=== PATIENT | female | born 1950 | race Caucasian/White ===

== ENCOUNTER → 2016-07-28 | Outpatient (CLI) | payer BC ==
[2016-07-28 09:34] LABS: ABSOLUTE EOSINOPHILS # (AUTO) 0.2 10^3/uL (0.0-0.6); ABSOLUTE LYMPHOCYTES (AUTO) 2.6 10^3/uL (0.5-4.7); ABSOLUTE MONOCYTES (AUTO) 0.4 10^3/uL (0.1-1.4); ABSOLUTE NEUT (AUTO) 3.5 10^3/uL (1.7-8.2); BASOPHILS % (AUTO) 0.5 % (0-2); EOSINOPHILS % (AUTO) 3.1 % (0-6); HEMATOCRIT 42.1 % (36.0-47.0); HEMOGLOBIN 13.7 g/dL (12.0-15.5); MEAN CORPUSCULAR HEMOGLOBIN 31.5 pg (27.0-33.4); MEAN CORPUSCULAR HGB CONC 32.4 g/dL (32.0-36.0); MEAN CORPUSCULAR VOLUME 97 fl (80-97); MONOCYTES % (AUTO) 5.4 % (3-13); RED BLOOD COUNT 4.33 10^6/uL (3.72-5.28); RED CELL DISTRIBUTION WIDTH 13.3 % (11.5-14.0); WHITE BLOOD COUNT 6.8 10^3/uL (4.0-10.5)
[2016-07-28 09:47] LABS: ALANINE AMINOTRANSFERASE 27 U/L (9-52); ALBUMIN 3.5 g/dL (3.5-5.0); ALKALINE PHOSPHATASE 77 U/L (38-126); ANION GAP 9 (5-19); ASPARTATE AMINO TRANSFERASE 30 U/L (14-36); BILIRUBIN,TOTAL 0.6 mg/dL (0.2-1.3); BLOOD UREA NITROGEN 15 mg/dL (7-20); CALCIUM 9.1 mg/dL (8.4-10.2); CARBON DIOXIDE 30 mmol/L (22-30); CHLORIDE 104 mmol/L (98-107); CREATININE RESULT 0.75 mg/dL (0.52-1.25); Direct HDL 72 mg/dL (>40); GLUCOSE 75 mg/dL (75-110); POTASSIUM 4.8 mmol/L (3.6-5.0); SODIUM 142.9 mmol/L (137-145); TOTAL PROTEIN 6.4 g/dL (6.3-8.2); TRIGLYCERIDES 59 mg/dL (<150)
[2016-07-28 09:58] LABS: DIRECT LDL 155 mg/dL (<100)
== END ==
LOC: OD 07:55
PROVIDERS: ATTEND Internal Medicine
DX: I10 Essential (primary) hypertension (principal); E78.5 Hyperlipidemia, unspecified; R53.82 Chronic fatigue, unspecified
CPT/HCPCS: 36415; 80053; 80061; 84443; 85025

== ENCOUNTER → 2016-10-14 | Outpatient (CLI) | payer BC ==
[2016-10-14 16:05] LABS: ALANINE AMINOTRANSFERASE 38 U/L (9-52); ALBUMIN 4.3 g/dL (3.5-5.0); ALKALINE PHOSPHATASE 87 U/L (38-126); ASPARTATE AMINO TRANSFERASE 35 U/L (14-36); BILIRUBIN,DIRECT 0.1 mg/dL (0.0-0.4); BILIRUBIN,TOTAL 0.9 mg/dL (0.2-1.3); TOTAL PROTEIN 6.7 g/dL (6.3-8.2)
== END ==
LOC: OD 14:19
PROVIDERS: ATTEND Internal Medicine
DX: Z79.899 Other long term (current) drug therapy (principal)
CPT/HCPCS: 36415; 80076

== ENCOUNTER → 2017-01-01 | Outpatient (CLI) | payer BC ==
--- NOTE | 2017-01-01 15:32 | WOMENS IMAGING REPORT ---
EXAM DESCRIPTION: BONE DENSITY HIP/SPINE COMPLETED DATE/TIME: 01/01/2017 2:33 pm REASON FOR STUDY: M85.80 M85.80 OTH DISRD OF BONE DENSITY AND STRUCTURE, UNSPECIFIED COMPARISON: 2005 TECHNIQUE: Dual-Energy X-ray Absorptiometry (DEXA) of the AP Spine and Hip. LIMITATIONS: None. FINDINGS: LUMBAR SPINE: The bone mineral density (BMD) measured from L1-L4 in the AP projection correlates with a T-score of 0.0, which is normal as defined by the World Health Organization. This is stable compared to previou s exams HIP: The bone mineral density (BMD) measured in the left femoral neck at the hip correlates with a T-score of -1.4, which is osteopenic as defined by the World Health Organization. This is stable compared t o previous exams IMPRESSION: 1. LUMBAR SPINE: Normal 2. HIP: Osteopenic COMMENT: The World Health Organization defines low BMD as follows: T-score: Normal: Greater than -1.0 Osteopenia: Between -1.0 and -2.5 Osteoporosis: Less than -2.5 without fractures Established osteoporosis: Less than -2.5 with fractures In general, you may wish to consider: Diagnosis Treatment Follow-up DEXA Normal BMD Prevention 2-3 years Osteopenia Prevention/Therapy 1-2 years Osteoporosis Therapy Yearly TECHNICAL DOCUMENTATION: JOB ID: [id number]- All Rights Reserved
== END ==
LOC: WI 13:22
PROVIDERS: ATTEND Obstetrics & Gynecology Gynecology
DX: M85.80 Other specified disorders of bone density and structure, unspecified site (principal)
CPT/HCPCS: 77080

== ENCOUNTER → 2017-02-17 | Outpatient (CLI) | payer BC ==
[2017-02-17 08:22] LABS: ALANINE AMINOTRANSFERASE 30 U/L (9-52); ALBUMIN 3.8 g/dL (3.5-5.0); ALKALINE PHOSPHATASE 121 U/L (38-126); ASPARTATE AMINO TRANSFERASE 37 U/L (14-36); BILIRUBIN,DIRECT 0.3 mg/dL (0.0-0.4); BILIRUBIN,TOTAL 0.7 mg/dL (0.2-1.3); CHOLESTEROL 176.18 mg/dL (0-200); Direct HDL 80 mg/dL (>40); TOTAL PROTEIN 6.8 g/dL (6.3-8.2); TRIGLYCERIDES 52 mg/dL (<150)
[2017-02-17 08:33] LABS: DIRECT LDL 88 mg/dL (<100)
== END ==
LOC: OD 07:05
PROVIDERS: ATTEND Internal Medicine
DX: E78.5 Hyperlipidemia, unspecified (principal); Z79.899 Other long term (current) drug therapy
CPT/HCPCS: 36415; 80061; 80076

== ENCOUNTER → 2018-12-15 | Outpatient (CLI) | payer MEDICARE ==
[2018-12-15 08:25] LABS: ABSOLUTE EOSINOPHILS # (AUTO) 0.3 10^3/uL (0.0-0.6); ABSOLUTE LYMPHOCYTES (AUTO) 2.4 10^3/uL (0.5-4.7); ABSOLUTE MONOCYTES (AUTO) 0.4 10^3/uL (0.1-1.4); ABSOLUTE NEUT (AUTO) 3.5 10^3/uL (1.7-8.2); BASOPHILS % (AUTO) 0.4 % (0-2); HEMATOCRIT 43.8 % (36.0-47.0); HEMOGLOBIN 14.8 g/dL (12.0-15.5); LYMPHOCYTES % (AUTO) 36.3 % (13-45); MEAN CORPUSCULAR HEMOGLOBIN 31.8 pg (27.0-33.4); MEAN CORPUSCULAR HGB CONC 33.7 g/dL (32.0-36.0); MEAN CORPUSCULAR VOLUME 94 fl (80-97); MONOCYTES % (AUTO) 6.4 % (3-13); PLATELET COUNT 189 10^3/uL (150-450); RED BLOOD COUNT 4.65 10^6/uL (3.72-5.28); RED CELL DISTRIBUTION WIDTH 13.7 % (11.5-14.0); SEGMENTED NEUTROPHILS % (AUTO) 52.9 % (42-78); TOTAL CELLS COUNTED % (AUTO) 100 %; WHITE BLOOD COUNT 6.7 10^3/uL (4.0-10.5)
[2018-12-15 08:46] LABS: ALANINE AMINOTRANSFERASE 31 U/L (9-52); ALBUMIN 4.3 g/dL (3.5-5.0); ALKALINE PHOSPHATASE 87 U/L (38-126); ANION GAP 10 (5-19); ASPARTATE AMINO TRANSFERASE 39 U/L (14-36); BILIRUBIN,DIRECT 0.2 mg/dL (0.0-0.4); BILIRUBIN,TOTAL 0.8 mg/dL (0.2-1.3); BLOOD UREA NITROGEN 19 mg/dL (7-20); CALCIUM 9.6 mg/dL (8.4-10.2); CARBON DIOXIDE 30 mmol/L (22-30); CHLORIDE 104 mmol/L (98-107); CHOLESTEROL 190.97 mg/dL (0-200); GLUCOSE 85 mg/dL (75-110); POTASSIUM 5.1 mmol/L (3.6-5.0); SODIUM 143.6 mmol/L (137-145); TOTAL PROTEIN 7.3 g/dL (6.3-8.2); TRIGLYCERIDES 48 mg/dL (<150)
[2018-12-15 08:57] LABS: DIRECT LDL 95 mg/dL (<100)
== END ==
LOC: OD 07:06
PROVIDERS: ATTEND Internal Medicine
DX: I10 Essential (primary) hypertension (principal); E78.5 Hyperlipidemia, unspecified; R53.83 Other fatigue; M19.90 Unspecified osteoarthritis, unspecified site
CPT/HCPCS: 36415; 80053; 80061; 84443; 85025